=== PATIENT | female | born 1965 | race Caucasian/White ===

== ENCOUNTER 2017-09-02 16:47 | Inpatient (IN) | payer SELFPAY ==
[~2017-09-02] VITALS: Ht 172.7 cm; Wt 113.3 kg
[2017-09-02 17:06] LABS: HEMATOCRIT 50.1 % (36.0-46.0); MCHC 31.1 G/DL (30.0-36.0); MCV 93.1 FL (83-99); MEAN PLAT.VOLUME 11.3 uM^3 (9.5-12.4); NRBC (%) 0.2 /100 WBC (0-0); PLATELET COUNT 281 K/uL (156-360); RBC DIS.WIDTH-CV 13.6 % (11.8-14.6); RBC DIS.WIDTH-SD 46.4 % (39-53); RED BLOOD COUNT 5.38 M/uL (3.80-5.20); WHITE BLOOD COUNT 24.9 K/uL (4.1-10.2)
[2017-09-02 17:12] LABS: PROTHROMBIN TIME 11.8 SEC (10.2-12.9)
[2017-09-02 17:14] LABS: PTT 44.7 SEC (25-37)
[2017-09-02 17:17] LABS: AMYLASE 60 IU/L (1-118); CHLORIDE 101 mEq/L (99-109); POTASSIUM 3.6 mEq/L (3.7-5.4); SODIUM 142 mEq/L (136-147)
[2017-09-02 17:18] LABS: GLUCOSE 341 mg/dL (70-99)
[2017-09-02 17:20] LABS: ANION GAP 26 MEQ/L (2-14)
[2017-09-02 17:22] LABS: GFR ESTIMATE (CALCULATED) 50 mL/min/; SERUM ETHYL ALCOHOL < 10 mg/dL
[2017-09-02 17:23] LABS: UREA NITROGEN (BUN) 17 mg/dL (9-23)
[2017-09-02 17:25] LABS: LIPASE 54 U/L (1.0-51.0)
[2017-09-02 17:28] LABS: BICARBONATE 16.2 mEq/L (22-26); CARBOXY HGB 1.2 % (0-5); COMMENTS - BLOOD GASES A+C+; DEVICE VENT; FI02 100 %; MECHANICAL RATE 20 resp/min; METHEMOGLOBIN 0.9 % (0-1.5); MODE A/C; PCO2 72 mm Hg (35-45); PEEP 7.5 CM/H20; PO2 379 mm Hg (80-100); SITE RR; TIDAL VOLUME 400 ML; TOTAL RESP RATE 22 resp/min; pH 6.96 (7.35-7.45)
[2017-09-02 17:31] LABS: TROP-I INTERPRETATION NEGATIVE; TROPONIN-I < 0.01 ng/mL (0.0-0.30)
[2017-09-02 17:32] LABS: QUANTITATIVE HCG < 4.0 MIU/ML
[2017-09-02 17:42] LABS: ADD MIUA? YES; BILIRUBIN NEGATIVE; BLOOD NEGATIVE; COLOR YELLOW ((YELLOW)); GLUCOSE (STRIP) NEGATIVE; KETONES NEGATIVE; LEUKOCYTES NEGATIVE; NITRITE NEGATIVE; PROTEIN (STRIP) 100; SPECIFIC GRAVITY 1.029 (1.000-1.030); UROBILINOGEN 0.2 MG/DL (0.2-1.0)
[2017-09-02 17:52] LABS: AMPHETAMINE NEGATIVE (500 ng/mL); BACTERIA NONE SEEN /HPF; BARBITURATES NEGATIVE (200 ng/mL); BENZODIAZEPINES NEGATIVE (150 ng/mL); COCAINE NEGATIVE (150 ng/mL); EPITHELIAL CELLS RARE /HPF; GRANULAR CASTS 0-5 /LPF; INTERNAL CONTROLS VALID? YES; METHADONE NEGATIVE (200 ng/mL); METHAMPHETAMINE NEGATIVE (500 ng/mL); MUCUS TRACE /LPF; OPIATES (MORPHINE) NEGATIVE (100 ng/mL); OXYCODONE NEGATIVE (100 ng/mL); PHENCYCLIDINE NEGATIVE (25 ng/mL); PROPOXYPHENE NEGATIVE (300 ng/mL); RED BLOOD CELLS 0-5 /HPF (0-5); THC CANNABINOIDS NEGATIVE (50 ng/mL); TRICYCLIC ANTIDEPRESSANTS NEGATIVE (300 ng/mL); UCUL ADDED? NO; WHITE BLOOD CELLS 0-5 /HPF (0-5)
[2017-09-02 18:36] LABS: BASOPHIL COUNT 0.1 K/uL (0-0.1); EOSINOPHIL (%) 0.9 % (0-5); EOSINOPHIL COUNT 0.2 K/uL (0-0.3); IMMATURE GRANULOCYTE (%) 4.1 % (0.0-0.7); INSTRUMENT ABS NEUTROPHIL CT 9.1 K/uL; LYMPHOCYTE COUNT 13.5 K/uL (1.0-2.8); MONOCYTE (%) 3.9 % (3-12); NEUTROPHIL (%) 36.3 % (45-76); NEUTROPHIL COUNT 9.1 K/uL (1.8-6.4)
[2017-09-02 20:45] VITALS: BP 144/67
[2017-09-02 20:48] VITALS: BP 152/85
[2017-09-02 21:00] VITALS: BP 152/82
[2017-09-02 21:56] LABS: BASE EXCESS -9.6 mEq/L (-3 to +3); CARBOXY HGB 1.7 % (0-5); METHEMOGLOBIN 1.7 % (0-1.5)
[2017-09-02 21:57] LABS: BICARBONATE 22.9 mEq/L (22-26); PCO2 81 mm Hg (35-45); PO2 207 mm Hg (80-100); pH 7.06 (7.35-7.45)
[2017-09-02 21:58] LABS: COMMENTS - BLOOD GASES A+C+; DEVICE 840 PB; FI02 100 %; MECHANICAL RATE 24 resp/min; MODE AC; PEEP 10 CM/H20; SITE LR; TIDAL VOLUME 400 ML; TOTAL RESP RATE 32 resp/min
[2017-09-02 22:00] VITALS: BP 96/58
[2017-09-02 22:23] LABS: METH RESISTANT S AUREUS PCR NEGATIVE (NEGATIVE)
[2017-09-02 22:36] LABS: PROBE CHECK PASS; SPECIMEN PROCESSING CONTROL PASS
[2017-09-02 23:00] VITALS: BP 97/66
[2017-09-03] VITALS (22 sets, daily range): BP systolic 87–141; BP diastolic 51–82
[2017-09-03] MEDS ORDERED: CALCIUM 500 MG1 EACH PO (02:01)
[2017-09-03] MEDS ORDERED: VITAMIN D5000 UNI1 PO (02:01)
[2017-09-03] MEDS ORDERED: TRULICITY0.75 MG/0. SC (02:02)
[2017-09-03] MEDS ORDERED: ASPIRIN81 M2 PO (02:02)
[2017-09-03] MEDS ORDERED: HYZAAR 100-11 TABLET PO (02:03)
[2017-09-03] MEDS ORDERED: GLUCOPHAGE500 MG PO (02:04)
[2017-09-03 05:50] LABS: BASE EXCESS -5.2 mEq/L (-3 to +3); BICARBONATE 19.1 mEq/L (22-26); CARBOXY HGB 1.3 % (0-5); METHEMOGLOBIN 1.8 % (0-1.5); PO2 235 mm Hg (80-100)
[2017-09-03 05:51] LABS: PCO2 33 mm Hg (35-45); SITE LR; pH 7.37 (7.35-7.45)
[2017-09-03 05:52] LABS: DEVICE 840; FI02 70 %; INSPIRATION TIME 0.9 seconds; MECHANICAL RATE 24 resp/min; MODE AC; PEEP 10 CM/H20; TIDAL VOLUME 600 ML; TOTAL RESP RATE 24 resp/min
[2017-09-03 06:40] LABS: TROP-I INTERPRETATION NEGATIVE; TROPONIN-I 0.21 ng/mL (0.0-0.30)
[2017-09-03 06:58] LABS: ANION GAP 15 MEQ/L (2-14); CHLORIDE 107 MEQ/L (99-109); GFR ESTIMATE (CALCULATED) > 59 mL/min/; GLUCOSE 309 mg/dL (70-99); POTASSIUM 3.8 MEQ/L (3.7-5.4); SAMPLE HEMOLYSIS CHECK 0; SAMPLE ICTERIC CHECK 0; SAMPLE LIPEMIA CHECK 0; SODIUM 140 MEQ/L (136-147)
[2017-09-03 07:09] LABS: UREA NITROGEN (BUN) 31 mg/dL (9-23)
[2017-09-03 11:57] LABS: BASE EXCESS -2.6 mEq/L (-3 to +3); BICARBONATE 20.6 mEq/L (22-26); CARBOXY HGB 1.4 % (0-5); METHEMOGLOBIN 1.6 % (0-1.5); PCO2 31 mm Hg (35-45); pH 7.43 (7.35-7.45)
[2017-09-03 11:58] LABS: PO2 121 mm Hg (80-100)
[2017-09-03 11:59] LABS: COMMENTS - BLOOD GASES C+; DEVICE VENT; FI02 50 %; INSPIRATION TIME 0.9 seconds; MECHANICAL RATE 24 resp/min; MODE AC VC+; PEEP 10 CM/H20; SITE RR; TIDAL VOLUME 600 ML; TOTAL RESP RATE 24 resp/min
[2017-09-04] VITALS (23 sets, daily range): BP systolic 111–184; BP diastolic 58–95
[2017-09-04 06:24] LABS: EOSINOPHIL (%) 0.1 % (0-5); HEMATOCRIT 32.8 % (36.0-46.0); IMMATURE GRANULOCYTE (%) 0.5 % (0.0-0.7); IMMATURE GRANULOCYTE COUNT 0.1 K/uL; LYMPHOCYTE COUNT 2.9 K/uL (1.0-2.8); MCH 28.5 PG (29.0-34.0); MCHC 33.8 G/DL (30.0-36.0); NEUTROPHIL (%) 76.3 % (45-76); RBC DIS.WIDTH-CV 14.2 % (11.8-14.6); RBC DIS.WIDTH-SD 44.1 % (39-53)
[2017-09-04 06:38] LABS: MCV 84.3 FL (83-99); RED BLOOD COUNT 3.89 M/uL (3.80-5.20)
[2017-09-04 07:00] LABS: MEAN PLAT.VOLUME 10.8 uM^3 (9.5-12.4); PLAT.SUFFICIENCY ADEQUATE; PLATELET COUNT 178 K/uL (156-360)
[2017-09-04 07:50] LABS: ALKALINE PHOSPHATASE 63 IU/L (3-129); ANION GAP 13 MEQ/L (2-14); CHLORIDE 110 MEQ/L (99-109); GFR ESTIMATE (CALCULATED) > 59 mL/min/; GLUCOSE 239 mg/dL (70-99); MAGNESIUM 1.4 mg/dl (1.3-2.7); POTASSIUM 3.2 MEQ/L (3.7-5.4); SAMPLE HEMOLYSIS CHECK 0; SAMPLE ICTERIC CHECK 0; SAMPLE LIPEMIA CHECK 0; SODIUM 143 MEQ/L (136-147); TOTAL BILIRUBIN 0.7 MG/DL (0.0-1.0); UREA NITROGEN (BUN) 24 mg/dL (9-23)
[2017-09-04 11:54] LABS: BASE EXCESS 1.6 mEq/L (-3 to +3); BICARBONATE 23.9 mEq/L (22-26); CARBOXY HGB 1.5 % (0-5); METHEMOGLOBIN 1.6 % (0-1.5); PCO2 30 mm Hg (35-45); pH 7.51 (7.35-7.45)
[2017-09-04 11:55] LABS: COMMENTS - BLOOD GASES NAC+; DEVICE 840 VENT; FI02 30 %; INSPIRATION TIME 0.9 seconds; MECHANICAL RATE 24 resp/min; MODE A/C; PO2 65 mm Hg (80-100); SITE LR; TIDAL VOLUME 600 ML; TOTAL RESP RATE 24 resp/min
[2017-09-04 11:56] LABS: PEEP 10 CM/H20
[2017-09-04 18:03] LABS: POINT-OF-CARE METER ID UU14162636
[2017-09-05] VITALS (20 sets, daily range): BP systolic 128–200; BP diastolic 62–117
[2017-09-05 01:40] LABS: POINT-OF-CARE METER ID UU13113803
[2017-09-05 05:38] LABS: POINT-OF-CARE METER ID UU14314083
[2017-09-05 06:06] LABS: EOSINOPHIL (%) 0 % (0-5); HEMATOCRIT 33.8 % (36.0-46.0); IMMATURE GRANULOCYTE COUNT 0.2 K/uL; INSTRUMENT ABS NEUTROPHIL CT 15.5 K/uL; LYMPHOCYTE COUNT 1.6 K/uL (1.0-2.8); MCV 85.4 FL (83-99); MEAN PLAT.VOLUME 11.8 uM^3 (9.5-12.4); MONOCYTE (%) 4.8 % (3-12); MONOCYTE COUNT 0.9 K/uL (0-0.8); NEUTROPHIL (%) 85.2 % (45-76); NEUTROPHIL COUNT 15.5 K/uL (1.8-6.4); PLATELET COUNT 182 K/uL (156-360); RBC DIS.WIDTH-CV 14.4 % (11.8-14.6); RBC DIS.WIDTH-SD 44.3 % (39-53); RED BLOOD COUNT 3.96 M/uL (3.80-5.20); WHITE BLOOD COUNT 18.2 K/uL (4.1-10.2)
[2017-09-05 07:10] LABS: ALKALINE PHOSPHATASE 67 IU/L (3-129); ANION GAP 15 MEQ/L (2-14); CHLORIDE 109 MEQ/L (99-109); GFR ESTIMATE (CALCULATED) > 59 mL/min/; GLUCOSE 276 mg/dL (70-99); POTASSIUM 2.8 MEQ/L (3.7-5.4); SAMPLE HEMOLYSIS CHECK 1; SAMPLE ICTERIC CHECK 0; SAMPLE LIPEMIA CHECK 0; SODIUM 146 MEQ/L (136-147); UREA NITROGEN (BUN) 21 mg/dL (9-23)
[2017-09-05 12:54] LABS: POINT-OF-CARE METER ID UU14162636
[2017-09-05 17:28] LABS: POINT-OF-CARE METER ID UU14314083
== END 2017-09-05 23:35 | DRG 208 ==
LOC: EME 16:47 → ENRESERV 16:54 → EDOF 19:24 → 4WEST 19:24
PROVIDERS: Emergency Medicine; Internal Medicine Cardiovascular Disease; Internal Medicine Critical Care Medicine; Specialist
PROC: 5A1945Z Respiratory Ventilation, 24-96 Consecutive Hours (ICD-10-PCS; principal; 2017-09-02)
DX: J96.01 Acute respiratory failure with hypoxia (principal); I44.7 Left bundle-branch block, unspecified; I46.9 Cardiac arrest, cause unspecified; J69.0 Pneumonitis due to inhalation of food and vomit; E66.9 Obesity, unspecified; G93.1 Anoxic brain damage, not elsewhere classified; I10 Essential (primary) hypertension; E78.2 Mixed hyperlipidemia; I34.0 Nonrheumatic mitral (valve) insufficiency; E11.65 Type 2 diabetes mellitus with hyperglycemia; I25.10 Atherosclerotic heart disease of native coronary artery without angina pectoris; F17.210 Nicotine dependence, cigarettes, uncomplicated; Z51.5 Encounter for palliative care; Z66 Do not resuscitate; Z68.37 Body mass index [BMI] 37.0-37.9, adult; L89.102 Pressure ulcer of unspecified part of back, stage 2; E87.6 Hypokalemia; E83.39 Other disorders of phosphorus metabolism; E87.2 Acidosis; Z79.84 Long term (current) use of oral hypoglycemic drugs; Z90.49 Acquired absence of other specified parts of digestive tract; Z82.49 Family history of ischemic heart disease and other diseases of the circulatory system
CPT/HCPCS: 36600; 70450; 71010; 71275; 80048; 80053; 80202; 81003; 82150; 82803; 82948; 83605; 83690; 83735; 83930; 84100; 84295; 84484; 84702; 85025; 85610; 85730; 86850; 86900; 86901; 87040; 87070; 87086; 87205; 87641; 93005; 93306; 94002; 94003; 94640; 94640 76; 95819; 99281; 99285; A6212; G0480; J0282; J0295; J0360; J1644; J1650; J1815; J1940; J2060; J2250; J2543; J2704; J3010; J3370; J3475; J3480; J7030; J7040; J7050; J7070